=== PATIENT | male | born 1985 | race Caucasian/White ===

== ENCOUNTER 2020-01-30 14:22 | Emergency (ER) | payer MEDICAID ==
[~2020-01-30] VITALS: Ht 170.2 cm; Wt 72.0 kg
[2020-01-30 14:42] VITALS: BP 148/107
[2020-01-30 16:03] LABS: CHLORIDE 106 mEq/L (98-107)
[2020-01-30 16:08] LABS: BASOPHILS % 0.5 % (0.0-2.0); EOSINOPHILS % 2.2 % (0.0-5.0); HEMATOCRIT. 49.1 % (42.0-52.0); HEMOGLOBIN. 16.7 g/dL (14.0-18.0); LYMPHOCYTES % 28.8 % (20.0-50.0); MEAN CORPUSCULAR HEMOGLOBIN 28.2 pg (28.0-32.0); MEAN CORPUSCULAR VOLUME 82.7 fL (80.0-94.0); MEAN PLATELET VOLUME 7.8 fl (7.4-10.4); MONOCYTES % 10.1 % (2.0-8.0); NEUTROPHILS % 58.4 % (40.0-76.0); PLATELET 301 x1000/uL (130-400); RED BLOOD CELL COUNT 5.93 mill/uL (4.7-6.1); RED CELL DISTRIBUTION WIDTH 13.3 % (11.6-14.6)
== END 2020-01-30 17:07 | disposition home or self-care (01) ==
LOC: ER 14:49
DX: R07.89 Other chest pain (principal); F41.9 Anxiety disorder, unspecified; F12.10 Cannabis abuse, uncomplicated; Z90.49 Acquired absence of other specified parts of digestive tract
CPT/HCPCS: 36415; 71045; 80053; 83880; 84484; 85025; 93005; 99285

== ENCOUNTER 2022-02-22 12:02 | Emergency (ER) | payer MEDICAID ==
[~2022-02-22] VITALS: Ht 170.2 cm; Wt 84.0 kg
[2022-02-22 12:09] VITALS: BP 143/90
[2022-02-22] MEDS ORDERED: DIPH25CA83 MT (13:16)
[2022-02-22] MEDS ORDERED: NAPR500T7 MT (13:16)
[2022-02-22] MEDS ORDERED: P20 MT (13:16)
== END 2022-02-22 14:00 | disposition home or self-care (01) ==
LOC: ER 12:02
DX: S40.861A Insect bite (nonvenomous) of right upper arm, initial encounter (principal); Z90.49 Acquired absence of other specified parts of digestive tract; W57.XXXA Bitten or stung by nonvenomous insect and other nonvenomous arthropods, initial encounter; Y93.89 Activity, other specified; Y92.89 Other specified places as the place of occurrence of the external cause; Y99.8 Other external cause status
CPT/HCPCS: 99282